=== PATIENT | male | born 1940 | race Caucasian/White ===

== ENCOUNTER 2018-02-26 11:41 | Emergency (ER) | payer MEDICARE | END 2018-02-26 14:09 | disposition home or self-care (01) | LOC: EDH 11:41 | DX: S00.83XA Contusion of other part of head, initial encounter (principal); I10 Essential (primary) hypertension; E11.9 Type 2 diabetes mellitus without complications; Z87.891 Personal history of nicotine dependence; Z79.84 Long term (current) use of oral hypoglycemic drugs; V19.9XXA Pedal cyclist (driver) (passenger) injured in unspecified traffic accident, initial encounter; Y93.I9 Activity, other involving external motion; Y92.89 Other specified places as the place of occurrence of the external cause; Y99.8 Other external cause status | CPT/HCPCS: 70450; 72125 ==